=== PATIENT | female | born 1940 | race Caucasian/White ===

== ENCOUNTER 2017-06-25 01:35 | Inpatient (IN) | payer OTHER ==
[~2017-06-25] VITALS: Ht 154.9 cm; Wt 66.0 kg
[2017-06-25 03:13] LABS: UA SPECIFIC GRAVITY <=1.005 (1.005-1.035); microscopic required? YES; urine erythrocyte 2+ (NEGATIVE)
[2017-06-25] MEDS ORDERED: ZESTRIL20 MG GT (03:13)
[2017-06-25] MEDS ORDERED: ZESTRIL20 MG PO (03:13)
[2017-06-25] MEDS ORDERED: SPRITAM250 MG PO (03:14)
[2017-06-25] MEDS ORDERED: GILOTRIF PO (03:14)
[2017-06-25 03:18] LABS: CALCIUM 9.6 mg/dL (8.5-10.1); CARBON DIOXIDE 26.5 mmol/L (21-32); CHLORIDE SERUM 104 mmol/L (98-107); CREATININE SERUM 0.8 mg/dL (0.6-1.0); GLUCOSE SERUM 93 mg/dL (74-106); POTASSIUM SERUM 3.7 mmol/L (3.5-5.1); SODIUM SERUM 140 mmol/L (136-145)
[2017-06-25 03:23] LABS: ALBUMIN 3.8 g/dL (3.4-5.0); ALKALINE PHOSPHATASE 98 U/L (46-116); ALT/SGPT 44 U/L (14-59); AST/SGOT 30 U/L (15-37); BILIRUBIN TOTAL 0.22 mg/dL (0.20-1.00); TOTAL PROTEIN, SERUM 7.8 g/dL (6.4-8.2)
[2017-06-25 03:33] LABS: BASOPHIL % 0.6 % (0-2); PLATELET COUNT 394 x10^3mcL (130-400); RED CELL DISTRIBUTION WIDTH 12.7 % (11.5-14.5)
[2017-06-25 04:39] LABS: AMPHETAMINE QUAL UR NONE DETECTED (NEG <=1000)
[2017-06-25 04:43] VITALS: BP 149/89
[2017-06-25 04:43] LABS: CHOLESTEROL/HDL RATIO 3.6; MAGNESIUM 1.8 mg/dL (1.8-2.4); PHOSPHOROUS 3.6 mg/dL (2.5-4.9)
[2017-06-25 04:55] LABS: FREE T4 1.19 ng/dL (0.76-1.46); FREE THYROXINE INDEX 3.2 ug/dL (1.4-4.5); T4(THYROXINE) 9.9 ug/dL (4.7-13.3)
[2017-06-25] MEDS ORDERED: HUMALOG MIX75/253 ML SC (05:19)
[2017-06-25] MEDS ORDERED: AMITRIPTYLINE25 M1 PO (05:20)
[2017-06-25 09:51] VITALS: BP 146/78
[2017-06-25 13:28] VITALS: BP 145/74
[2017-06-25 16:51] VITALS: BP 135/63
[2017-06-25 21:08] VITALS: BP 143/68
[2017-06-26 05:36] VITALS: BP 147/75
[2017-06-26 08:56] LABS: BASOPHIL % 0.4 % (0-2); PLATELET COUNT 367 x10^3mcL (130-400); RED CELL DISTRIBUTION WIDTH 12.9 % (11.5-14.5)
[2017-06-26 10:03] VITALS: BP 164/80
[2017-06-26 10:23] LABS: CALCIUM 8.7 mg/dL (8.5-10.1); CARBON DIOXIDE 26.9 mmol/L (21-32); CHLORIDE SERUM 105 mmol/L (98-107); CREATININE SERUM 0.6 mg/dL (0.6-1.0); GLUCOSE SERUM 152 mg/dL (74-106); MAGNESIUM 1.7 mg/dL (1.8-2.4); PHOSPHOROUS 3.3 mg/dL (2.5-4.9); SODIUM SERUM 142 mmol/L (136-145)
[2017-06-26 14:24] VITALS: BP 150/73
[2017-06-26 14:39] VITALS: BP 150/73
[2017-06-26 17:10] VITALS: BP 142/71
[2017-06-26 21:06] VITALS: BP 137/62
[2017-06-27 05:51] VITALS: BP 152/73
[2017-06-27 06:12] LABS: BASOPHIL % 0.4 % (0-2); PLATELET COUNT 336 x10^3mcL (130-400); RED CELL DISTRIBUTION WIDTH 12.6 % (11.5-14.5)
[2017-06-27 06:44] LABS: CALCIUM 8.7 mg/dL (8.5-10.1); CARBON DIOXIDE 23.8 mmol/L (21-32); CHLORIDE SERUM 108 mmol/L (98-107); CREATININE SERUM 0.6 mg/dL (0.6-1.0); GLUCOSE SERUM 147 mg/dL (74-106); MAGNESIUM 1.7 mg/dL (1.8-2.4); PHOSPHOROUS 3.3 mg/dL (2.5-4.9); POTASSIUM SERUM 3.5 mmol/L (3.5-5.1); SODIUM SERUM 141 mmol/L (136-145)
[2017-06-27 09:29] VITALS: BP 162/65
[2017-06-27 09:42] VITALS: BP 128/73
[2017-06-27 11:04] VITALS: BP 107/68; BP 128/73
[2017-06-27 11:55] VITALS: Ht 154.9 cm; Wt 66.0 kg
[2017-06-27] MEDS ORDERED: CEF250 PO (12:21)
[2017-06-27] MEDS ORDERED: LAC PO (12:22)
[2017-06-27] MEDS ORDERED: MAC100 PO (13:41)
[2017-06-27 14:07] VITALS: BP 107/68
[2017-06-27] MEDS ORDERED: NORCO1 TA2 PO (14:09)
== END 2017-06-27 15:00 | disposition home or self-care (01) | DRG 689 ==
LOC: ED 01:35 → DU 04:02
PROVIDERS: Emergency Medicine; Family Medicine
DX: N39.0 Urinary tract infection, site not specified (principal); N17.0 Acute kidney failure with tubular necrosis; R31.9 Hematuria, unspecified; R80.9 Proteinuria, unspecified; I10 Essential (primary) hypertension; E11.65 Type 2 diabetes mellitus with hyperglycemia; E11.51 Type 2 diabetes mellitus with diabetic peripheral angiopathy without gangrene; G40.909 Epilepsy, unspecified, not intractable, without status epilepticus; E78.5 Hyperlipidemia, unspecified; F32.9 Major depressive disorder, single episode, unspecified; Z68.28 Body mass index [BMI] 28.0-28.9, adult; Z85.118 Personal history of other malignant neoplasm of bronchus and lung; Z92.21 Personal history of antineoplastic chemotherapy; Z90.2 Acquired absence of lung [part of]; Z79.4 Long term (current) use of insulin
CPT/HCPCS: 82962; 83880; 84439; 97110-GP; 97116-GP; 97530-GP; J1815; J1956; J7030; Q0092

== ENCOUNTER 2018-03-29 14:59 | Emergency (ER) | payer OTHER ==
[~2018-03-29] VITALS: Ht 160 cm; Wt 90.7 kg
[~2018-03-29 14:59] MED LIST: AMITRIPTYLINE25 M1 PO; CEF250 PO; GILOTRIF PO; HUMALOG MIX75/253 ML SC; LAC PO; MAC100 PO; NORCO1 TA2 PO; SPRITAM250 MG PO; ZESTRIL20 MG GT; ZESTRIL20 MG PO
[2018-03-29 15:08] VITALS: Ht 160 cm; Wt 90.7 kg
[2018-03-29 16:59] LABS: BASOPHIL % 0.5 % (0-2); PLATELET COUNT 351 x10^3mcL (130-400); RED CELL DISTRIBUTION WIDTH 12.8 % (11.5-14.5)
[2018-03-29 18:50] VITALS: BP 128/79
== END 2018-03-29 18:51 | disposition home or self-care (01) ==
LOC: ED 14:59
PROVIDERS: Emergency Medicine
DX: J40 Bronchitis, not specified as acute or chronic (principal); I10 Essential (primary) hypertension; E11.9 Type 2 diabetes mellitus without complications; Z85.118 Personal history of other malignant neoplasm of bronchus and lung; Z98.890 Other specified postprocedural states; Z88.0 Allergy status to penicillin
CPT/HCPCS: 36415; J7030; Q0092

== ENCOUNTER 2018-07-18 14:38 | Emergency (ER) | payer OTHER ==
[~2018-07-18] VITALS: Ht 157.5 cm; Wt 64.4 kg
[2018-07-18 14:52] VITALS: Ht 157.5 cm; Wt 64.4 kg
[2018-07-18 16:18] LABS: UA SPECIFIC GRAVITY <=1.005 (1.005-1.035); microscopic required? YES; urine erythrocyte TRACE (NEGATIVE)
[2018-07-18 17:09] VITALS: BP 127/68
== END 2018-07-18 17:09 | disposition home or self-care (01) ==
LOC: ED 14:38
PROVIDERS: Emergency Medicine
DX: R30.0 Dysuria (principal); I10 Essential (primary) hypertension; E11.9 Type 2 diabetes mellitus without complications; Z88.0 Allergy status to penicillin; G51.0 Bell's palsy

== ENCOUNTER 2018-07-21 14:21 | Emergency (ER) | payer OTHER ==
[~2018-07-21] VITALS: Ht 157.5 cm; Wt 65.8 kg
[2018-07-21 14:50] VITALS: Ht 157.5 cm; Wt 65.8 kg
[2018-07-21 16:47] VITALS: BP 149/84
== END 2018-07-21 16:47 | disposition home or self-care (01) ==
LOC: ED 14:21
DX: R30.0 Dysuria (principal); I10 Essential (primary) hypertension; E11.9 Type 2 diabetes mellitus without complications; G51.0 Bell's palsy; Z88.0 Allergy status to penicillin; Z90.49 Acquired absence of other specified parts of digestive tract; Z85.118 Personal history of other malignant neoplasm of bronchus and lung
CPT/HCPCS: 82962

== ENCOUNTER 2019-03-15 18:55 | Emergency (ER) | payer OTHER ==
[~2019-03-15] VITALS: Ht 157.5 cm; Wt 64.9 kg
[2019-03-15 18:59] VITALS: Ht 157.5 cm; Wt 64.9 kg
[2019-03-15 19:34] LABS: BASOPHIL % 0.9 % (0-2); PLATELET COUNT 325 x10^3mcL (130-400); RED CELL DISTRIBUTION WIDTH 13.2 % (11.5-14.5)
[2019-03-15 19:48] LABS: CALCIUM 9.5 mg/dL (8.5-10.1); CARBON DIOXIDE 28.2 mmol/L (21-32); CHLORIDE SERUM 101 mmol/L (98-107); CREATININE SERUM 0.7 mg/dL (0.6-1.0); GLUCOSE SERUM 191 mg/dL (74-106); SODIUM SERUM 138 mmol/L (136-145)
[2019-03-15 19:52] LABS: ALBUMIN 3.8 g/dL (3.4-5.0); ALKALINE PHOSPHATASE 111 U/L (46-116); ALT/SGPT 35 U/L (14-59); AST/SGOT 20 U/L (15-37)
[2019-03-15 21:34] VITALS: BP 126/54
== END 2019-03-15 21:34 | disposition home or self-care (01) ==
LOC: ED 18:55
DX: J20.9 Acute bronchitis, unspecified (principal); M25.512 Pain in left shoulder
CPT/HCPCS: 36415; 87804; J1885; Q0092

== ENCOUNTER 2019-05-07 16:54 | Emergency (ER) | payer OTHER ==
[~2019-05-07] VITALS: Ht 154.9 cm; Wt 90.7 kg
[2019-05-07 17:02] VITALS: Ht 154.9 cm; Wt 90.7 kg
[2019-05-07 18:04] LABS: BASOPHIL % 0.8 % (0-2); PLATELET COUNT 347 x10^3mcL (130-400)
[2019-05-07 18:38] LABS: microscopic required? YES; urine erythrocyte 1+ (NEGATIVE)
[2019-05-07 18:48] LABS: CALCIUM 9.5 mg/dL (8.5-10.1); CHLORIDE SERUM 106 mmol/L (98-107); CREATININE SERUM 0.7 mg/dL (0.6-1.0); GLUCOSE SERUM 71 mg/dL (74-106); POTASSIUM SERUM 3.6 mmol/L (3.5-5.1); SODIUM SERUM 144 mmol/L (136-145)
[2019-05-07 18:51] LABS: ALBUMIN 3.5 g/dL (3.4-5.0); ALKALINE PHOSPHATASE 111 U/L (46-116); ALT/SGPT 26 U/L (14-59); AST/SGOT 22 U/L (15-37); BILIRUBIN TOTAL 0.19 mg/dL (0.20-1.00); MAGNESIUM 1.8 mg/dL (1.8-2.4); TOTAL PROTEIN, SERUM 7.5 g/dL (6.4-8.2)
[2019-05-07 21:47] VITALS: BP 155/70
== END 2019-05-07 21:47 | disposition home or self-care (01) ==
LOC: ED 16:54
PROVIDERS: Emergency Medicine
DX: J06.9 Acute upper respiratory infection, unspecified (principal); J40 Bronchitis, not specified as acute or chronic; E11.9 Type 2 diabetes mellitus without complications; I10 Essential (primary) hypertension; Z85.118 Personal history of other malignant neoplasm of bronchus and lung; Z88.0 Allergy status to penicillin; Z90.2 Acquired absence of lung [part of]
CPT/HCPCS: 87804; J0456; J1885; J7050; Q0092